=== PATIENT | male | born 1990 | race Caucasian/White ===

== ENCOUNTER 2017-05-20 09:57 | Emergency (ER) | payer SELFPAY ==
[2017-05-20] MEDS ORDERED: DIPH,PERTUSS(ACELL),TET VAC/PF 0.5 ML DISP.SYRIN IM ONE (11:17)
--- NOTE | 2017-05-20 11:17 | ED Physician Documentation ---
Upper Extremity Injury - HISTORIAN Historian: patient, parent - HPI Stated Complaint: L pinky injury Chief Complaint: Upper Extremity Injury Additional Information: works w/machine caught lt pinky finger incog wheel w/puncture wound-can move but painful--xray rev nofracture. Onset: just prior to arrival Where: work Severity: mild, moderate Duration: persistent since Context: crush Associated Symptoms: numbness distally (slight). denies: feeling loss, loss of power to arms Modifying Factors: pain on movement - ROS CONST: no problems CVS/RESP: none NEURO: none MS/SKIN/LYMPH: none GI/: denies: nausea, vomiting - PAST HX Past History: none Immunizations: denies: UTD Allergies/Adverse Reactions: Allergies Allergy/AdvReac Type Severity Reaction Status Date / Time No Known Allergies Allergy Verified 05/20/17 10:32 Home Medications: Ambulatory Orders Medication Instructions Recorded NK [NK] 05/20/17 - SOCIAL HX Smoking History: non-smoker Alcohol Use: none Drug Use: none - FAMILY HX Family History: no significant history - VITAL SIGNS Vital Signs: Vital Signs Temp Pulse Resp BP Pulse Ox 98.4 F 76 18 136/84 98 05/20/17 10:26 05/20/17 10:26 05/20/17 10:26 05/20/17 10:26 05/20/17 10:26 - REVIEWED ASSESSMENTS Nursing Assessment Reviewed: Yes Vitals Reviewed: Yes ED Results Lab/Radiology - Radiology Radiology Impressions: no fracture seen lt pinky finger - Orders Orders: ED Orders Category Date Time Status HAND 3 VIEWS OR MORE [RAD] Stat Exams 05/20/17 Ordered Diph,Pertuss(Acell),Tet Vac/Pf [Adacel] Med 05/20/17 11:17 Discontinued 0.5 ml IM .ONCE ONE Upper Extremity Injury Physic - Physical Exam General Appearance: mild distress Hand: bone tenderness, laceration, stiffness. No: no evidence of injury, normal ROM Wrist: normal inspection Elbow/Forearm: normal inspection Shoulder: normal inspection Neuro/Vascular/Tendon: no vascular compromise Skin: warm,dry Head/ENT: nml inspection Resp/CVS: chest non-tender, lungs clear Abdomen: non-tender Discharge Clincal Impression: crush injury w/puncture wound lt 5th fig Referrals: Primary Doctor,No [Primary Care Provider] - 2 Days Comments: home keep clean use betadine plus rx for keflex plus tet immun Condition: Good Disposition: 01 HOME, SELF-CARE Decision to Admit: NO Decision Time: 11:28
[2017-05-20 11:28] VITALS: BP 128/79
--- NOTE | 2017-05-20 13:10 | Diagnostic Imaging Report ---
LEON CORREA [facility] [address] [facility].[address] [id number] Report Submission Date: May 20, 2017 11:08:13 AM CDT Patient Study Name: JULIANNE KIM Date: May 20, 2017 10:47:55 AM CDT Modality Type: CR Gender: M Description: UPPER EXTREMITY : 89 Institution: [facility] Physician: LEON CORREA Examination: Plain film hand History: Injury Comparison exams: None available Findings: 3 views the hand demonstrate normal cortical margins. No fracture. No dislocation. No soft tissue abnormality. Impression: No acute osseous abnormality. Electronically signed on May 20, 2017 11:08:13 AM CDT by: Triston SHEA
== END 2017-05-20 11:27 | disposition home or self-care (01) ==
LOC: ED 09:57
DX: S67.197A Crushing injury of left little finger, initial encounter (principal); S61.237A Puncture wound without foreign body of left little finger without damage to nail, initial encounter; X58.XXXA Exposure to other specified factors, initial encounter; Y93.9 Activity, unspecified; Y99.9 Unspecified external cause status
CPT/HCPCS: 73130; 90471; 90715; 99283